=== PATIENT | male | born 1940 | race Caucasian/White ===

== ENCOUNTER 2018-01-09 03:04 | Observation (INO) | payer OTHER, SELFPAY ==
[~2018-01-09] VITALS: Ht 170.2 cm; Wt 59.0 kg
[~2018-01-09 03:04] MED LIST: ALBU3IS INH; ALBU90OI INH; AMLO5 PO; ASPI81CH PO; BUDE6HFA INH; FAMO20 PO; FERR325 PO; FLUSAL1005 INH; FLUSAL5005 INH; GUAI600T33 PO; LEVO750 PO; METO25 PO; MUCOMYST; Norco 5-325 Ta1 EACH PO; OXYGEN; PRAV20 PO; PRED1 PO; PRED10 PO; PRED20 PO; Pulmicort Fle180 MCG INH; ROFL500T PO; TIOT18 INH; TRAM50 PO
[2018-01-09] MEDS ORDERED: PRED10 PO (03:49)
[2018-01-09] MEDS ORDERED: ALBU2.5V5 NEB (03:51)
[2018-01-09] MEDS ORDERED: CLOP75 PO (03:53)
[2018-01-09] MEDS ORDERED: AMLO10 PO (03:54)
[2018-01-09 04:15] LABS: BASOPHILS ABSOLUTE AUTO 0.05 K/mm3 (0.00-0.23); BASOPHILS PERCENT AUTO 0 % (0-2); EOSINOPHILS ABSOLUTE AUTO 0.13 K/mm3 (0.00-0.68); EOSINOPHILS PERCENT AUTO 1 % (0-6); Hematocrit 29.8 % (37.0-53.0); Hemoglobin 9.2 g/dL (13.5-17.5); IMMATURE GRAN PERCENT AUTO 1 % (0-1); LYMPHOCYTES PERCENT AUTO 7 % (21-46); MONOCYTES ABSOLUTE AUTO 1.06 K/mm3 (0.16-1.47); MONOCYTES PERCENT AUTO 7 % (4-13); Mean Corpuscular HGB 25.6 pg (26.0-34.0); Mean Corpuscular HGB Conc 30.9 g/dL (31.5-36.5); Mean Corpuscular Volume 83 fL (80-100); Mean Platelet Volume 10.6 fL (9.1-12.4); NEUTROPHILS ABSOLUTE AUTO 12.39 K/mm3 (1.96-9.15); NEUTROPHILS PERCENT AUTO 84 % (41-73); Platelet Count 252 K/mm3 (150-400); RDW Coefficient Variation 14.2 % (11.7-14.2); RDW Standard Deviation 43.1 fL (35.1-46.3); Red Blood Cell Count 3.59 M/mm3 (4.30-5.90); White Blood Cell Count 14.83 K/mm3 (4.00-11.30)
[2018-01-09 04:33] LABS: Alanine Aminotransfer (ALT/SGP 12 U/L (12-78); Albumin, Blood 3.5 g/dL (3.4-5.0); Albumin/Globulin Ratio 1.1 (0.8-1.8); Alk Phos 37 U/L (50-136); Anion Gap 7 mmol/L (6-16); Aspartate Aminotrans (AST/SGOT 13 U/L (12-37); Bilirubin, Total 0.4 mg/dL (0.1-1.0); Blood Urea Nitrogen 19 mg/dL (8-24); Bun/Creatinine Ratio 19.6 (12.0-20.0); CO2, Blood 28 mmol/L (21-32); Calcium, Blood 8.2 mg/dL (8.5-10.1); Chloride, Blood 106 mmol/L (98-108); Creatinine, Blood 0.97 mg/dL (0.60-1.20); Globulin, Blood 3.1 g/dL (2.2-4.0); Glomerular Filtration Rate >60 (60-); Glucose, Blood 94 mg/dL (70-99); Sodium, Blood 141 mmol/L (136-145); Total Protein, Blood 6.6 g/dL (6.4-8.2)
[2018-01-09 05:09] LABS: Magnesium, Blood 2.3 mg/dL (1.6-2.4)
[2018-01-09 06:28] LABS: Source, Urine Clean Catch
[2018-01-09 06:35] LABS: Bilirubin, Urine Neg (Neg); Blood, Urine Neg (Neg); Glucose Qualitative, Urine Neg (Neg); Ketones, Urine Neg (Neg); Leukocyte Esterase, Urine Neg (Neg); Nitrite, Urine Neg (Neg); Protein, Urine Neg (Neg); Specific Gravity, Urine 1.015 (1.003-1.022); Urobilinogen, Urine NORM (Normal)
[2018-01-09 06:43] LABS: Appearance, Urine Clear (Clear); Color, Urine Yellow (P-Yellow)
[2018-01-09 09:06] LABS: International Normalized Ratio 0.97
[2018-01-10 05:26] LABS: BASOPHILS ABSOLUTE AUTO 0.02 K/mm3 (0.00-0.23); BASOPHILS PERCENT AUTO 0 % (0-2); EOSINOPHILS PERCENT AUTO 0 % (0-6); Hematocrit 26.1 % (37.0-53.0); Hemoglobin 8.1 g/dL (13.5-17.5); IMMATURE GRAN ABSOLUTE AUTO 0.12 K/mm3 (0.00-0.10); IMMATURE GRAN PERCENT AUTO 1 % (0-1); LYMPHOCYTES ABSOLUTE AUTO 0.31 K/mm3 (0.84-5.20); LYMPHOCYTES PERCENT AUTO 2 % (21-46); MONOCYTES ABSOLUTE AUTO 0.41 K/mm3 (0.16-1.47); MONOCYTES PERCENT AUTO 2 % (4-13); Mean Corpuscular HGB 25.7 pg (26.0-34.0); Mean Corpuscular Volume 83 fL (80-100); Mean Platelet Volume 10.4 fL (9.1-12.4); NEUTROPHILS ABSOLUTE AUTO 18.62 K/mm3 (1.96-9.15); NEUTROPHILS PERCENT AUTO 96 % (41-73); Platelet Count 212 K/mm3 (150-400); RDW Coefficient Variation 14.3 % (11.7-14.2); RDW Standard Deviation 43.4 fL (35.1-46.3); Red Blood Cell Count 3.15 M/mm3 (4.30-5.90); White Blood Cell Count 19.48 K/mm3 (4.00-11.30)
[2018-01-10 05:52] LABS: Alanine Aminotransfer (ALT/SGP 10 U/L (12-78); Albumin, Blood 2.7 g/dL (3.4-5.0); Albumin/Globulin Ratio 0.8 (0.8-1.8); Alk Phos 31 U/L (50-136); Anion Gap 8 mmol/L (6-16); Aspartate Aminotrans (AST/SGOT 16 U/L (12-37); Bilirubin, Total 0.4 mg/dL (0.1-1.0); Blood Urea Nitrogen 22 mg/dL (8-24); Bun/Creatinine Ratio 24.6 (12.0-20.0); CO2, Blood 24 mmol/L (21-32); Calcium, Blood 7.8 mg/dL (8.5-10.1); Chloride, Blood 108 mmol/L (98-108); Creatinine, Blood 0.89 mg/dL (0.60-1.20); Globulin, Blood 3.2 g/dL (2.2-4.0); Glomerular Filtration Rate >60 (60-); Glucose, Blood 130 mg/dL (70-99); Magnesium, Blood 2.2 mg/dL (1.6-2.4); Potassium, Blood 4.1 mmol/L (3.5-5.5); Sodium, Blood 140 mmol/L (136-145); Total Protein, Blood 5.9 g/dL (6.4-8.2)
[2018-01-10] MEDS ORDERED: CLOP75 PO (13:46)
[2018-01-10] MEDS ORDERED: HYDR1TAB94 PO (13:47)
[2018-01-10] MEDS ORDERED: LEVO750 PO (13:48)
== END 2018-01-10 14:03 | disposition home or self-care (01) ==
LOC: ER 03:04 → SURS 03:05
PROVIDERS: Emergency Medicine; Internal Medicine; Surgery
PROC: 0DTJ4ZZ Resection of Appendix, Percutaneous Endoscopic Approach (ICD-10-PCS; principal; 2018-01-09 10:30)
DX: K35.2 Acute appendicitis with generalized peritonitis (principal); I10 Essential (primary) hypertension; J44.9 Chronic obstructive pulmonary disease, unspecified; I25.10 Atherosclerotic heart disease of native coronary artery without angina pectoris; Z86.73 Personal history of transient ischemic attack (TIA), and cerebral infarction without residual deficits; Z95.2 Presence of prosthetic heart valve; Z79.02 Long term (current) use of antithrombotics/antiplatelets; Z79.899 Other long term (current) drug therapy; Z79.82 Long term (current) use of aspirin; Z79.52 Long term (current) use of systemic steroids; Z88.0 Allergy status to penicillin; Z88.8 Allergy status to other drugs, medicaments and biological substances
CPT/HCPCS: 36415; 74176; 80053; 81003; 83605; 83690; 83735; 85025; 85027; 85610; 85730; 86850; 86900; 86901; 88304; 93005; 93010; 94640; 94760; 96361; 96365; 96366; 96372; 96375; 96376; 99285-25; G0378; J1100; J1650; J1885; J1956; J2250; J2370; J2405; J2710; J2930; J3010; J7030; J7120

== ENCOUNTER 2018-10-06 10:51 | Emergency (ER) | payer OTHER ==
[~2018-10-06] VITALS: Ht 170.2 cm; Wt 58.1 kg
[~2018-10-06 10:51] MED LIST changes: +ALBU2.5V5 NEB; +AMLO10 PO; +CLOP75 PO; +HYDR1TAB94 PO
[2018-10-06 11:32] LABS: BASOPHILS ABSOLUTE AUTO 0.06 K/mm3 (0.00-0.23); BASOPHILS PERCENT AUTO 1 % (0-2); EOSINOPHILS ABSOLUTE AUTO 0.05 K/mm3 (0.00-0.68); EOSINOPHILS PERCENT AUTO 0 % (0-6); Hematocrit 31.7 % (37.0-53.0); Hemoglobin 8.1 g/dL (13.5-17.5); IMMATURE GRAN ABSOLUTE AUTO 0.13 K/mm3 (0.00-0.10); IMMATURE GRAN PERCENT AUTO 1 % (0-1); LYMPHOCYTES ABSOLUTE AUTO 0.38 K/mm3 (0.84-5.20); LYMPHOCYTES PERCENT AUTO 3 % (21-46); MONOCYTES ABSOLUTE AUTO 1.06 K/mm3 (0.16-1.47); MONOCYTES PERCENT AUTO 9 % (4-13); Mean Corpuscular HGB 19.9 pg (26.0-34.0); Mean Corpuscular HGB Conc 25.6 g/dL (31.5-36.5); Mean Corpuscular Volume 78 fL (80-100); Mean Platelet Volume 9.9 fL (9.1-12.4); NEUTROPHILS ABSOLUTE AUTO 9.89 K/mm3 (1.96-9.15); NEUTROPHILS PERCENT AUTO 86 % (41-73); Platelet Count 298 K/mm3 (150-400); RDW Coefficient Variation 17.9 % (11.7-14.2); RDW Standard Deviation 50.4 fL (35.1-46.3); Red Blood Cell Count 4.07 M/mm3 (4.30-5.90); White Blood Cell Count 11.57 K/mm3 (4.00-11.30)
[2018-10-06 11:58] LABS: Alanine Aminotransfer (ALT/SGP 17 U/L (12-78); Albumin, Blood 3.7 g/dL (3.4-5.0); Albumin/Globulin Ratio 1.1 (0.8-1.8); Alk Phos 61 U/L (50-136); Anion Gap 8 mmol/L (6-16); Aspartate Aminotrans (AST/SGOT 14 U/L (12-37); Bilirubin, Total 0.3 mg/dL (0.1-1.0); Blood Urea Nitrogen 16 mg/dL (8-24); Bun/Creatinine Ratio 17.1 (12.0-20.0); CO2, Blood 27 mmol/L (21-32); Calcium, Blood 8.7 mg/dL (8.5-10.1); Chloride, Blood 102 mmol/L (98-108); Creatinine, Blood 0.93 mg/dL (0.60-1.20); Globulin, Blood 3.5 g/dL (2.2-4.0); Glomerular Filtration Rate >60 (60-); Glucose, Blood 94 mg/dL (70-99); Potassium, Blood 3.6 mmol/L (3.5-5.5); Sodium, Blood 137 mmol/L (136-145); Total Protein, Blood 7.2 g/dL (6.4-8.2); Troponin I <0.015 ng/mL (0.000-0.040)
[2018-10-06] MEDS ORDERED: PRED20 PO (14:57)
[2018-10-06] MEDS ORDERED: SPIRIVA RESPIMAT INH (16:56)
[2018-10-06] MEDS ORDERED: METO25 PO (16:58)
[2018-10-06] MEDS ORDERED: BUDE6HFA PO (16:59)
[2018-10-06] MEDS ORDERED: FERROUS SULFATE PO (17:00)
[2018-10-06] MEDS ORDERED: DALIRESP500 MCG PO (17:02)
[2018-10-06] MEDS ORDERED: Percocet 5-3251 EACH PO (18:05)
[2018-10-06] MEDS ORDERED: Zovirax800 MG PO (18:05)
[2018-10-06 18:15] LABS: Percent Saturation 3.6 % (20.0-50.0)
== END 2018-10-06 18:45 | disposition home or self-care (01) ==
LOC: ER 10:51
PROVIDERS: Emergency Medicine; Nurse Practitioner Acute Care
DX: J44.1 Chronic obstructive pulmonary disease with (acute) exacerbation (principal); B02.9 Zoster without complications; D64.9 Anemia, unspecified; Z88.0 Allergy status to penicillin; Z79.899 Other long term (current) drug therapy; Z87.891 Personal history of nicotine dependence
CPT/HCPCS: 36415; 71046; 80053; 82728; 83540; 83550; 84484; 85025; 93005; 93010; 94644; J2405; J2930; J3010

== ENCOUNTER 2018-10-09 12:26 | Inpatient (IN) | payer OTHER ==
[~2018-10-09] VITALS: Ht 170.2 cm; Wt 57.5 kg
[~2018-10-09 12:26] MED LIST changes: -AMLO10 PO; +BUDE6HFA PO; +DALIRESP500 MCG PO; +Ferrous Sulfat325 M2 PO; +Percocet 5-3251 EACH PO; +SPIRIVA RESPIMAT INH; +Zovirax800 MG PO
[2018-10-09 13:33] LABS: BASOPHILS ABSOLUTE AUTO 0.06 K/mm3 (0.00-0.23); BASOPHILS PERCENT AUTO 0 % (0-2); EOSINOPHILS ABSOLUTE AUTO 0.02 K/mm3 (0.00-0.68); EOSINOPHILS PERCENT AUTO 0 % (0-6); Hematocrit 27.8 % (37.0-53.0); Hemoglobin 7.7 g/dL (13.5-17.5); IMMATURE GRAN ABSOLUTE AUTO 0.34 K/mm3 (0.00-0.10); IMMATURE GRAN PERCENT AUTO 1 % (0-1); LYMPHOCYTES ABSOLUTE AUTO 0.85 K/mm3 (0.84-5.20); LYMPHOCYTES PERCENT AUTO 3 % (21-46); MONOCYTES ABSOLUTE AUTO 2.01 K/mm3 (0.16-1.47); MONOCYTES PERCENT AUTO 8 % (4-13); Mean Corpuscular HGB Conc 27.7 g/dL (31.5-36.5); Mean Platelet Volume 9.5 fL (9.1-12.4); NEUTROPHILS ABSOLUTE AUTO 21.87 K/mm3 (1.96-9.15); NEUTROPHILS PERCENT AUTO 87 % (41-73); Platelet Count 317 K/mm3 (150-400); RDW Coefficient Variation 17.9 % (11.7-14.2); RDW Standard Deviation 46.2 fL (35.1-46.3); Red Blood Cell Count 3.85 M/mm3 (4.30-5.90); White Blood Cell Count 25.15 K/mm3 (4.00-11.30)
[2018-10-09 13:54] LABS: Alanine Aminotransfer (ALT/SGP 17 U/L (12-78); Albumin, Blood 3.6 g/dL (3.4-5.0); Alk Phos 59 U/L (50-136); Anion Gap 6 mmol/L (6-16); Aspartate Aminotrans (AST/SGOT 15 U/L (12-37); Bilirubin, Total 0.4 mg/dL (0.1-1.0); Blood Urea Nitrogen 19 mg/dL (8-24); Bun/Creatinine Ratio 16.1 (12.0-20.0); CO2, Blood 29 mmol/L (21-32); Calcium, Blood 8.7 mg/dL (8.5-10.1); Chloride, Blood 100 mmol/L (98-108); Creatinine, Blood 1.18 mg/dL (0.60-1.20); Globulin, Blood 3.6 g/dL (2.2-4.0); Glomerular Filtration Rate >60 (60-); Glucose, Blood 94 mg/dL (70-99); Potassium, Blood 3.6 mmol/L (3.5-5.5); Sodium, Blood 135 mmol/L (136-145); Total Protein, Blood 7.2 g/dL (6.4-8.2)
[2018-10-09 14:14] LABS: Mean Corpuscular Volume 72 fL (80-100)
[2018-10-09 15:31] LABS: Source, Urine Clean Catch
[2018-10-09 15:38] LABS: Bilirubin, Urine Neg (Neg); Blood, Urine Neg (Neg); Glucose Qualitative, Urine Neg (Neg); Ketones, Urine 2+ (Neg); Leukocyte Esterase, Urine Neg (Neg); Nitrite, Urine Neg (Neg); Protein, Urine Neg (Neg); Specific Gravity, Urine 1.005 (1.003-1.022); Urobilinogen, Urine NORM (Normal)
[2018-10-09 15:58] LABS: Appearance, Urine Clear (Clear); Color, Urine Yellow (P-Yellow)
--- NOTE | 2018-10-09 18:16 | NUR ---
PT ADMITTED FROM ED 1630 VIA STRETCHER, STOOD AND STEPPED INTO BED SBA, UNABLE TO LIFT OWN LEGS RELATED TO WEAKNESS. ASSISTED PT INTO BED. ORIENTED TO ROOM SETUP AND SAFETY. HOOKED UP TO TELE- RATE 116-122 UNABLE TO DETERMINE RHYTHM BUT THOUGHT LIKELY A FIB. SET UP IF FLUIDS AND GOT PT WATER AND STEPH MIST. ABLE TO SIP FLUIDS, FEELS NAUSEA EASY WITH PO INTAKE. STATES LAST BM 4 DAYS AGO. WILL START LAX PROTOCOL. COMPLETED HX AND ASSESSMENT. HAS LLL MOISTURE AND UPPER LOBE EXP WHEEZE. CALLED DORY RT 1615 TO EVAL PT AND SET UP NEBS.
--- NOTE | 2018-10-09 18:32 | NUR ---
Pt visit this evening. Pt is A&Ox4 and reports 7/10 pain in his right shoulder. He reports 6/7 dyspnea. Pt reports that he typically wears oxygen at home but due to inability to pay oxygen was picked up. Pt requests for this RN to come back tomorrow when his is here. He reports his dyspnea is increasing as he speaks. This RN honored Pt's wishes. Spoke with Pt's nurse Ryley and she reports that she has asked RT to come evaluate to help manage dyspnea. Plan is to establish initial visit and assessment for needs when is here. Pt reports will be visiting around noon tomorrow.
[2018-10-10 04:51] LABS: BASOPHILS ABSOLUTE AUTO 0.03 K/mm3 (0.00-0.23); BASOPHILS PERCENT AUTO 0 % (0-2); EOSINOPHILS ABSOLUTE AUTO 0.09 K/mm3 (0.00-0.68); EOSINOPHILS PERCENT AUTO 1 % (0-6); Hematocrit 22.1 % (37.0-53.0); Hemoglobin 6.1 g/dL (13.5-17.5); IMMATURE GRAN ABSOLUTE AUTO 0.18 K/mm3 (0.00-0.10); IMMATURE GRAN PERCENT AUTO 1 % (0-1); LYMPHOCYTES ABSOLUTE AUTO 1.29 K/mm3 (0.84-5.20); LYMPHOCYTES PERCENT AUTO 8 % (21-46); MONOCYTES ABSOLUTE AUTO 1.23 K/mm3 (0.16-1.47); MONOCYTES PERCENT AUTO 8 % (4-13); Mean Corpuscular HGB 19.8 pg (26.0-34.0); Mean Corpuscular HGB Conc 27.6 g/dL (31.5-36.5); Mean Corpuscular Volume 72 fL (80-100); Mean Platelet Volume 10.3 fL (9.1-12.4); NEUTROPHILS ABSOLUTE AUTO 12.82 K/mm3 (1.96-9.15); NEUTROPHILS PERCENT AUTO 82 % (41-73); Platelet Count 256 K/mm3 (150-400); RDW Coefficient Variation 17.9 % (11.7-14.2); RDW Standard Deviation 46.1 fL (35.1-46.3); Red Blood Cell Count 3.08 M/mm3 (4.30-5.90); White Blood Cell Count 15.64 K/mm3 (4.00-11.30)
[2018-10-10 05:03] LABS: Anion Gap 6 mmol/L (6-16); Blood Urea Nitrogen 15 mg/dL (8-24); CO2, Blood 27 mmol/L (21-32); Calcium, Blood 7.9 mg/dL (8.5-10.1); Chloride, Blood 106 mmol/L (98-108); Glomerular Filtration Rate >60 (60-); Glucose, Blood 82 mg/dL (70-99); Potassium, Blood 3.9 mmol/L (3.5-5.5); Sodium, Blood 139 mmol/L (136-145)
--- NOTE | 2018-10-10 05:51 | NUR ---
78 Y/O MALE RESTED COMFORTABLY ALL EVENING. PTS LUNGS WHEEZING WITH RESPIRATORY TREATMENTS PROVIDED VIA RT. PT ALERT AND ORIENTED X3, DENIES PAIN OR NAUSEA. PT HAPPY AND COOPERATIVE. PT BED LOW POSITION, CALL LIGHT AT SIDE.
--- NOTE | 2018-10-10 10:01 | NUR ---
PATIENT TRANSFERED TO ICU 12 AFTER STAFF SONOGRAPHER 303 FOR DFFICULTY BREATHING.
--- NOTE | 2018-10-10 10:16 | NUR ---
CALLED DR. HO AND REC'D ORDERS FOR 1V CXR INSTEAD OF 2V
--- NOTE | 2018-10-10 10:28 | NUR ---
Responded to a rapid response to Vishal's room this morning. Dr. Bhakta states she thinks that he may have aspirated. His breathing is rapid and shallow with a cough noted when this verse writer initially arrived. ELECTRICIAN SUBSTATION SUPERVISOR staff tending to pt. Dr. Bhakta asked Vishal what he would like as far as resusitation and treatment. He is agreeable to treatments and a breathing tube "As long as I'm not a vegetable." Pt was transferred to ICU 12. Vishal's breathing improved enough that he was able to call his . ICU nurse, Trenton, who responded to the ELECTRICIAN SUBSTATION SUPERVISOR spoke with pt's on the phone. PC RN assisted with transferring pt to the ICU. ICU nurse will call PC RN when pt's arrives. PC plan from yesterday was to have a conversation with pt and re: code status when she came in to visit with pt today. PC to follow with AD/POLST and advanced care planning discussion when arrives.
--- NOTE | 2018-10-10 11:53 | NUR ---
MD VISIT DR. REYES IN
--- NOTE | 2018-10-10 11:54 | NUR ---
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 HAS SEEN DR. CASTILLO
--- NOTE | 2018-10-10 12:20 | NUR ---
ERNESTO GONSALEZ SUPERINTENDENT METERS IN. ASSISTED PATIENT AND HIS TO FILL OUT ADVANCE DIRECTIVES
--- NOTE | 2018-10-10 13:18 | NUR ---
CALLED DR. HO RE ORDER FOR STOOL. PT WILL BE POSITIVE FOR BLOOD D/T HEMORRHOID. CANCELLED.
--- NOTE | 2018-10-10 16:51 | NUR ---
FIRST UNIT OF BLOOD COMPLETE. STARTED PIV LFA WITH LIDOCAINE
--- NOTE | 2018-10-10 17:33 | NUR ---
MD VISIT DR. CHAMBERLAIN IN. NO ORDERS
[2018-10-10 17:58] LABS: Hematocrit 29.5 % (37.0-53.0); Hemoglobin 8.7 g/dL (13.5-17.5)
--- NOTE | 2018-10-10 18:07 | NUR ---
CALLED DR. HO AFTER H/H RETURNED. WILL HOLD ON 2ND UNIT OF PRBC IT IS 8.7/29.5
--- NOTE | 2018-10-10 18:42 | NUR ---
I met with vikki and his spouse, Fawn at bedside. Vishal had trouble talking, as it would lead to fits of coughing. Fawn did most of the talking. She tells me that when they got 12 years ago, "Vishal was told he had two years to live." Because of this, she has trouble believing that he is nearing end-of-life. They have just moved into a new home. Both atribute the stress of this move to causing the exaserbation of Vishal's health problems. They very much depend on each other. Fawn admits, she is "terified" of losing him. I brought up the subject of an Advanced Directive. I explained the benefit of having this document as a supportive tool for family--they will know exactly what Vishal wants instead of having to figure out what he means when he says "I don't want to be a vegetable." We completed an Advanced Directive for Vishal. Signed by witnesses and copied. I hand-carried a copy to medical records and gave several to Fawn to distribute to adult children. Fawn and Vishal's dtr, Berna will be co-MPOA. I provided Vishal and Fawn the assurance of God's love and atention. this appeared to calm Fawn in particular. I will remain available.
--- NOTE | 2018-10-10 19:20 | NUR ---
ASSUMED CARE PT SITTING UP IN BED, AWAKE AND ALERT, DENIES SOB AND WITH PROMPTING, REPORTS PAIN TO LEFT EAR D/T SINGLES. SITE IS DRY AND HAS SCABS PRESENT BUT PT DECLINES PAIN MEDICATIONS. HR NOTED TO BE IN THE 130'S AND PER AM RN WAS NEW. PLAN TO ADMINISTER IV LOPRESSOR SINCE PT IS NPO AND CANNOT TAKE HOME RX'S UNTIL CLEARED BY ST. PT VOIDING IN URINAL WITHOUT ASSISTANCE.
--- NOTE | 2018-10-11 06:16 | NUR ---
SHIFT SUMMARY NO ACUTE EVENTS OVERNIGHT. PT WAS ABLE TO SLEEP FOR MAJORITY OF SHIFT. PT DOES NOT USE CALL LIGHT FREQUENTLY AND HAS STATED THAT "I DON'T WANT TO BE A BURDEN TO ANYONE." ENCOURAGED TO CALL FOR ANY NEEDS OR CONCERNS AND ASSURED PT THAT HE WAS NOT A BURDEN. PT BECOMES VERY SOB WITH MINIMAL MOVEMENT W/ RR IN THE 30'S AND PURSED LIP BREATHING BUT RECOVERS QUICKLY AND HAS NOT REQUIRED O2/MAINTAINED O2 SATS >90% FOR SHIFT. SINUS TACH NOTED AT START OF SHIFT HAS NOT RETURN POST IV LOPRESSOR ADMINISTRATION AND HAS RANGED 80-100. LR AT 75ML/HR, PT REMAIN NPO PENDING ST EVAL.
--- NOTE | 2018-10-11 07:37 | NUR ---
ASSUMED CARE PT. ALERT AND ORIENTED THIS AM. RESTING COMFORTABLY IN BED. CURRENTLY ON RA, RR EVEN AND UNLABORED. PT. REPORTS PAIN LEVEL OF 2/10 THIS AM TO RIGHT EAR R/T SHINGLES. PT. REPORTS THIS IS THE BEST CONTROLLED HIS PAIN HAS BEEN. PT. ANTHONY IN BED. NADN. URINAL AT BEDSIDE CALL LIGHT IN REACH. BED IN LOW POSITION.
--- NOTE | 2018-10-11 08:02 | NUR ---
SPEECH THERAPY IN TO WORK WITH PT.
[2018-10-11 10:27] LABS: BASOPHILS ABSOLUTE AUTO 0.02 K/mm3 (0.00-0.23); BASOPHILS PERCENT AUTO 0 % (0-2); EOSINOPHILS PERCENT AUTO 0 % (0-6); Hematocrit 27.7 % (37.0-53.0); Hemoglobin 8.2 g/dL (13.5-17.5); IMMATURE GRAN PERCENT AUTO 1 % (0-1); LYMPHOCYTES ABSOLUTE AUTO 0.34 K/mm3 (0.84-5.20); LYMPHOCYTES PERCENT AUTO 2 % (21-46); MONOCYTES ABSOLUTE AUTO 0.62 K/mm3 (0.16-1.47); MONOCYTES PERCENT AUTO 3 % (4-13); Mean Corpuscular HGB 21.1 pg (26.0-34.0); Mean Corpuscular HGB Conc 29.6 g/dL (31.5-36.5); Mean Corpuscular Volume 71 fL (80-100); Mean Platelet Volume 10.1 fL (9.1-12.4); NEUTROPHILS ABSOLUTE AUTO 18.32 K/mm3 (1.96-9.15); NEUTROPHILS PERCENT AUTO 94 % (41-73); Platelet Count 316 K/mm3 (150-400); RDW Coefficient Variation 18.7 % (11.7-14.2); RDW Standard Deviation 47.1 fL (35.1-46.3); Red Blood Cell Count 3.89 M/mm3 (4.30-5.90)
[2018-10-11 10:41] LABS: Albumin, Blood 2.6 g/dL (3.4-5.0); Anion Gap 8 mmol/L (6-16); Blood Urea Nitrogen 19 mg/dL (8-24); Bun/Creatinine Ratio 21.6 (12.0-20.0); CO2, Blood 26 mmol/L (21-32); Calcium, Blood 8.6 mg/dL (8.5-10.1); Chloride, Blood 103 mmol/L (98-108); Creatinine, Blood 0.88 mg/dL (0.60-1.20); Glomerular Filtration Rate >60 (60-); Glucose, Blood 183 mg/dL (70-99); Phosphorus, Blood 2.2 mg/dL (2.5-4.9); Potassium, Blood 3.4 mmol/L (3.5-5.5); Sodium, Blood 137 mmol/L (136-145)
--- NOTE | 2018-10-11 12:22 | NUR ---
UPDATE PT. SOB WITH EXERTION; ASSISTED UP TO BED SIDE TOILET WITH ONE PERSON ASSIST. PT TAKES APPROX 5 MIN TO RECOVER. SPO2 MAINTAINS >95% ON RA. PT. AT BEDSIDE. PT. ABLE TO FEED SELF WITH OUT DIFFICULTY.CALL LIGHT IN REACH.
--- NOTE | 2018-10-11 14:30 | NUR ---
SPIRITUAL CARE AT BEDSIDE. PT. TEARFUL IN CONVERSATION. WILL MED WHEN PT IS DONE PRAYING AND HAVING PRIVATE CONVERSATION.
--- NOTE | 2018-10-11 15:58 | NUR ---
REPORT TO AGATA MOORE. PT AND ALL BELONGINGS TO BE TAKEN TO U 13. PT NOTIFIED.
--- NOTE | 2018-10-11 16:30 | NUR ---
Lengthy visit with Vishal and his this afternoon. He was tearful throughout. He spoke about his accomplishments and how much he misses being able to build and create things like he used to. He listed many things he hopes he will be able to fix around his new home when he gets his strength back. He expressed deep frustration at "the system" that has let him down. He feels victimized that after years of hard work, he is now left in abject poverty. He spoke at length about his love for Fawn and his gratitude for her love. I provided gentle staff genetic counselor regarding his deeply-seated dissapointment with his quality of life, and his dreams of being able to complete a few "last wishes." He held my hand tightly throughout conversation and appeared to benefit from emotional and spiritual support. We prayed together for his family at his request. I will remain available.
--- NOTE | 2018-10-11 18:26 | NUR ---
SHIFT SUMMARY 1615 PT RECEIVED FROM ICU VIA BED. ALERT AND ORIENTED X3. DENIES PAIN THIS AFTERNOON. LUNG SOUNDS COARSE WITH EXPIRATORY WHEEZES THROUGHOUT, DYSPNEA ON EXERTION. MOIST COUGH, PT HAD SMALL AMOUNT OF EMESIS AFTER COUGHING. ON ARRIVAL, IV FOUND TO BE INFILTRATED, NEW IV STARTED TO LEFT FOREARM. PT TEARFUL THIS AFTERNOON WHEN TALKING ABOUT HIS AND HIS ILLNESS. REASSURED PT AND LISTENED THERAPEUTICALLY. PT DENIES NEEDS. WILL CONTINUE TO MONITOR.
--- NOTE | 2018-10-12 00:39 | NUR ---
ASSUMED CARE OF PATIENT AT APPROXIMATELY 1900 FROM AGATA Bartlett RN. PATIENT ALERT AND ORIENTED X4; PATIENT HAS NOT AMBULATED SINCE SHIFT CHANGE; USES URINAL IN BED. PATIENT DENIES PAIN, DIZZINESS AND NAUSEA. PATIENT REPORTS NUMBNESS AND TINGLING IN FEET FOR "TWO MONTHS". PATIENT IS VERY DYSPNEIC AT REST AT TIMES; PATIENT HAS COUGHING EPISODES WHERE PATIENT'S HEART RATE INCREASES UP TO 150 BUT LOWERS TO 100 TO HIGH 120'S WITHIN A FEW MINUTES; PATIENT REPORTS FEELING LIKE HE CANNOT BREATH; PATIENT REPORTS BEDSIDE FAN BLOWING IN FACE HELPS. SR/ST W/PACS ON TELE; OXYGEN SATURATION ABOVE 90% ON ROOM AIR. PATIENT HAS BLOOD TINGED SPUTUM WITH MODERATE AMOUNTS PRODUCED; L/S EXP WHEEZES TO COARSE. PIV TKO. PATIENT CURRENTLY RESTING IN BED; CALL LIGHT IN REACH; BED IN LOWEST POSISTION; BED ALARM ON; WILL CONTINUE TO MONITOR AND ASSESS UNTIL END OF SHIFT.
[2018-10-12 04:02] LABS: BASOPHILS ABSOLUTE AUTO 0.02 K/mm3 (0.00-0.23); BASOPHILS PERCENT AUTO 0 % (0-2); EOSINOPHILS PERCENT AUTO 0 % (0-6); Hematocrit 25.9 % (37.0-53.0); Hemoglobin 7.6 g/dL (13.5-17.5); IMMATURE GRAN ABSOLUTE AUTO 0.19 K/mm3 (0.00-0.10); IMMATURE GRAN PERCENT AUTO 1 % (0-1); LYMPHOCYTES ABSOLUTE AUTO 0.34 K/mm3 (0.84-5.20); LYMPHOCYTES PERCENT AUTO 2 % (21-46); MONOCYTES ABSOLUTE AUTO 0.69 K/mm3 (0.16-1.47); MONOCYTES PERCENT AUTO 3 % (4-13); Mean Corpuscular HGB 21.3 pg (26.0-34.0); Mean Corpuscular HGB Conc 29.3 g/dL (31.5-36.5); Mean Corpuscular Volume 73 fL (80-100); Mean Platelet Volume 10.2 fL (9.1-12.4); NEUTROPHILS ABSOLUTE AUTO 20.98 K/mm3 (1.96-9.15); NEUTROPHILS PERCENT AUTO 94 % (41-73); Platelet Count 324 K/mm3 (150-400); RDW Coefficient Variation 18.9 % (11.7-14.2); RDW Standard Deviation 48.4 fL (35.1-46.3); Red Blood Cell Count 3.57 M/mm3 (4.30-5.90); White Blood Cell Count 22.22 K/mm3 (4.00-11.30)
[2018-10-12 04:20] LABS: Albumin, Blood 2.4 g/dL (3.4-5.0); Anion Gap 10 mmol/L (6-16); Blood Urea Nitrogen 29 mg/dL (8-24); Bun/Creatinine Ratio 30.3 (12.0-20.0); CO2, Blood 24 mmol/L (21-32); Calcium, Blood 8.1 mg/dL (8.5-10.1); Chloride, Blood 108 mmol/L (98-108); Creatinine, Blood 0.96 mg/dL (0.60-1.20); Glomerular Filtration Rate >60 (60-); Glucose, Blood 156 mg/dL (70-99); Phosphorus, Blood 2.9 mg/dL (2.5-4.9); Potassium, Blood 3.4 mmol/L (3.5-5.5); Sodium, Blood 142 mmol/L (136-145)
--- NOTE | 2018-10-12 06:56 | NUR ---
PRN BLOOD PRESSURE MEDICATION GIVEN; GOOD RESULTS. NO OTHER ACUTE CHANGES TO REPORT. WILL CONTINUE TO MONITOR AND ASSESS UNTIL END OF SHIFT.
--- NOTE | 2018-10-12 13:28 | NUR ---
SHIFT NOTE ASSUMED CARE OF PT AT APPROX 0700. AT THAT TIME, PT VSS AND APPEARED TO BE IN MILD RESPIRATORY DISTRESS TRIGGERED BY A COUGHING EPISODE. RT AND DR HO AT BEDSIDE. FURTHER SWALLOW EVAL ORDERED PER DR. HO, AND ST IN THIS AFTERNOON FOR FURTHER ASSESSMENT. ST ORDERS: NO STRAWS, ALL MEDS ONE BY ONE IN APPLE SAUCE, ALL MEDS TAKEN IN CHAIR, ALL LIQUIDS NECTAR THICK WITH SPOON AND PUREE DIET. IF PT SOB, NPO FOR PATIENT SAFETY PER ST. PT EXPRESSED EMOTIONAL DISTRESS/CONCERN TO THIS RN ABOUT CURRENT ILLNESS. PT TEARFUL EXPRESSING FEAR OF "NOT MAKING IT OUT OF THE HOSPITAL" PT STATES THAT IS HIS BEST MEANS OF SUPPORT. CURRENTLY AT BEDSIDE AND CALMS THE PT PRN. THIS RN PROVIDED THERAPEUTIC COMMUNICATION AND ACTIVE LISTENING TO PT REGARDING CONCERNS. PT CALMED BY THIS RN PRESNCE. ORDERS FOR BIPAP RECIEVED AND BIPAP IN ROOM READY TO BE TESTED WHEN RT ASSESSES APPROPRIATE. PT CURRENTLY CALM AND IN NO APPARENT SIGNS OF DISTRESS. PT ON RA, TELE SHOWS SR-ST. ST WITH COUGH UP TO 130'S. AFTER COUGHING EPISODE SUBSIDES, ST TURNS INTO NSR. SEE SHIFT ASSESSMENT FOR DETAILED ASSESSMENT. WILL CONTINUE TO MONITOR AND UPDATE APPROPRIATE
[2018-10-12 13:46] LABS: Hematocrit 27.6 % (37.0-53.0); Hemoglobin 8.4 g/dL (13.5-17.5)
--- NOTE | 2018-10-12 16:56 | NUR ---
SHIFT SUMMARY VSS THIS SHIFT. PT NAPPING THROUGHOUT SHIFT, STATES COMFORTABLE AND STATES "I WANT TO CATCH UP ON SLEEP". PT STABLE ON 1L NC, MAINTAINING OXYGEN SATS >90. PT TOLERATING BRIDGE FROM CARDIZEM TO METOPROLOL SUSTAINING HR IN 80'S THIS SHIFT. PT TOLERATING Q2 TURNS. NO ACUTE CHANGES, LASIX GIVEN AND 650 ML OUT THIS SHIFT. VEL POWERGLIDE PATENT. LAC PATENT. STILL AWAITING BED AVAILABILITY AT [facility]. WILL CONTINUE TO MONIOR AND UPDATE APPROPRIATE.
--- NOTE | 2018-10-12 17:12 | NUR ---
SHIFT SUMMARY NO ACUTE CHANGES THIS SHIFT. PT VSS AND TOLERATING BREATHING TX WELL. PT WITH FAMILY AND FRIENDS VISITING THIS AFTERNOON. FAMILY AND FRIENDS HELP TO CALM PT. PT VERY TEARFUL THIS SHIFT REGARDING CURRENT ILLNESS, PAST ILLNESSES, AND REMEMBERING FAMILY MEMBERS WHO HAVE . PT O2 SATURATIONS <90 ON RA AND WITH E/U BREATHING WHEN NOT COUGHING. WITH COUGH, PT NSR TURNS INTO ST AND PT BECOMES VERY ANXIOUS. CLEAR SPUTUM THROUGHOUT THIS SHIFT. LFA IV PATENT AND INFUSING TKO. PT VERY ESPINOSA. 1 PERSON ASSIST WITH TRANSFER. PT NEEDS TO SIT IN CHAIR AND EAT PUREE DIET ONLY IF NOT SOB. WILL CONTINUE TO MONITOR AND UPDATE APPROPRIATE.
--- NOTE | 2018-10-12 22:15 | NUR ---
ASSUMED CARE OF PATIENT AT APPROXIMATELY 1915 FROM ITZ Childers RN. PATIENT ALERT AND ORIENTED X4; TEARFUL AT TIMES DISCUSSING FAMILY; PLEASANT; APPEARS DEPRESSED AT TIMES; ANXIOUS ABOUT BEING DISCHARGED TOO SOON "LIKE LAST TIME". PATIENT HAS NOT AMBULATED SINCE SHIFT CHANGE; USES URINAL IN BED. PATIENT DENIES PAIN, DIZZINESS AND NAUSEA. PATIENT REPORTS NUMBNESS AND TINGLING IN FEET FOR "TWO MONTHS". PATIENT IS VERY DYSPNEIC AT REST AT TIMES; PATIENT'S COUGHING EPISODES HAVE DECREASED COMPARED TO LAST NIGHT; PATIENT'S HEART RATE TO 100 TO HIGH 120'S; TOUCHES 130'S FOR SECONDS; RECOVERS WITHIN A FEW MINUTES; PATIENT REPORTS BEDSIDE FAN BLOWING IN FACE HELPS. ST W/PACS ON TELE; OXYGEN SATURATION ABOVE 90% ON ROOM AIR. PATIENT COUGHS UP MODERATE AMOUNTS OF THICK CLEAR SPUTUM; THICKENED LIQUIDS; MEDS WHOLE IN APPLESAUCE; UP TO CHAIR FOR EATING; EXP WHEEZES TO COARSE. PIV TKO. PATIENT CURRENTLY RESTING IN BED; CALL LIGHT IN REACH; BED IN LOWEST POSISTION; BED ALARM ON; WILL CONTINUE TO MONITOR AND ASSESS UNTIL END OF SHIFT.
--- NOTE | 2018-10-12 23:05 | NUR ---
PATIENT CALLED STAFF TO ROOM TO REPORT EVERY TIME HE FALLS ALSEEP SOMETHING BEEPS; REFERRING TO PULSE OXIMETRY; DROPS TO 88-89 %; PATIENT PLACED ON BIPAP W/ 1LPM BLEED IN; OXYGEN SAT UP TO 95%; RESP RATE DECREASED AND HEART RATE IMPROVING AT TIMES. WILL CONTINUE TO MONITOR AND ASSESS UNTIL END OF SHIFT.
[2018-10-13 04:48] LABS: BASOPHILS ABSOLUTE AUTO 0.02 K/mm3 (0.00-0.23); BASOPHILS PERCENT AUTO 0 % (0-2); EOSINOPHILS PERCENT AUTO 0 % (0-6); Hematocrit 25.9 % (37.0-53.0); Hemoglobin 7.4 g/dL (13.5-17.5); IMMATURE GRAN ABSOLUTE AUTO 0.69 K/mm3 (0.00-0.10); IMMATURE GRAN PERCENT AUTO 4 % (0-1); LYMPHOCYTES ABSOLUTE AUTO 0.38 K/mm3 (0.84-5.20); LYMPHOCYTES PERCENT AUTO 2 % (21-46); MONOCYTES ABSOLUTE AUTO 0.65 K/mm3 (0.16-1.47); MONOCYTES PERCENT AUTO 4 % (4-13); Mean Corpuscular HGB Conc 28.6 g/dL (31.5-36.5); Mean Corpuscular Volume 73 fL (80-100); NEUTROPHILS PERCENT AUTO 91 % (41-73); Platelet Count 317 K/mm3 (150-400); RDW Coefficient Variation 19.9 % (11.7-14.2); RDW Standard Deviation 50.9 fL (35.1-46.3); Red Blood Cell Count 3.53 M/mm3 (4.30-5.90); White Blood Cell Count 18.34 K/mm3 (4.00-11.30)
[2018-10-13 05:10] LABS: Albumin, Blood 2.5 g/dL (3.4-5.0); Anion Gap 7 mmol/L (6-16); Blood Urea Nitrogen 32 mg/dL (8-24); Bun/Creatinine Ratio 37.4 (12.0-20.0); CO2, Blood 26 mmol/L (21-32); Calcium, Blood 8.1 mg/dL (8.5-10.1); Chloride, Blood 112 mmol/L (98-108); Creatinine, Blood 0.86 mg/dL (0.60-1.20); Glomerular Filtration Rate >60 (60-); Glucose, Blood 141 mg/dL (70-99); Phosphorus, Blood 2.7 mg/dL (2.5-4.9); Potassium, Blood 3.9 mmol/L (3.5-5.5); Sodium, Blood 145 mmol/L (136-145)
--- NOTE | 2018-10-13 09:07 | NUR ---
SHIFT NOTE ASSUMED CARE OF PT AT APPROX 0700, 10/13/18. PT VSS AND IN NO APPARENT SIGN OF DISTRESS. A&OX4. BREATHING E/U ON 1.5 L VIA NC. EXPIRATORY WHEEZES AUDIBLE. IV LFA PATENT AND INFUSING ABX. PT EXPERIENCES SOB WITH CONVERSATION, AMUBLATION, MOVEMENT. PT CALLS APPROPRIATELY, CALL LIGHT WITHIN REACH. PT W/O QUESTIONS OR COMPLAINTS AT THIS TIME. SEE SHIFT ASSESSMENT FOR DETAILED ASSESSMENT. WILL CONTINUE TO MONITOR.
--- NOTE | 2018-10-13 16:07 | NUR ---
SHIFT SUMMARY NO ACUTE CHANGES THIS SHIFT. PT VSS AND IN NO APPARENT SIGN OF DISTRESS. PT BREATHING E/U AT THIS TIME. PT IN ST WITH FREQUENT PAC WITH HR IN 120-[address] MONTENEGRO AWARE AND ORDERED NS 125ML/HR. PT WITH NEWLY PLACED MCKENNA POWERGLIDE. THIS POWERGLIDE DOES NOT DRAW BLOOD WELL BECAUSE IT IS PLACED ON A VALVE, THEREFORE DO NOT USE THIS POWERGLIDE FOR LAB DRAWS. PT MAINTAINING O2 SATS >90 ON RA.
--- NOTE | 2018-10-13 19:30 | NUR ---
ASSUMED CARE PT RESTING IN ROOM COMFORTABLY AT THIS TIME. PER DAY SHIFT PT HAD NO ACUTE CHANGES IN STATUS TODAY. SHINGLES NOTED TO R EAR, NO DRAINAGE. PT AFFECT PLEASENT AND COOPERATIVE. RESP EVEN UNLBAORED ON RA. PER DAY SHIFT PT HAS EPISODES OF ANXIETY AND USES O2 PRN AT 1L VIA NC. PT REPORTS HAS BEEN WORKING ON PURSED LIP BREATHING FOR ANXIETY WELL. DENIES CP. PT IS SBA TO RR. NS INFUSING IN PIV. DENIES OTHER NEEDS. CALL LIGHT IN REACH.
--- NOTE | 2018-10-14 05:47 | NUR ---
SHIFT SUMMARY PT SLEEPING IN ROOM COMFORTABLY AT THIS TIME. NO ACUTE CHANGES IN STATUS TROUGHOUT NIGHT. PT SLEPT WELL OFF AND ON. RESP EVEN UNLBOARED ON RA, W/ SATS >92%. PT DID NOT NEED PRN OXYGEN AT ALL THROUGHOUT NIGHT. DENIES ANY PAIN. DENIES ANY NEEDS THIS AM. CALL LIGHT IS IN REACH. WILL CONTINUE TO MONITOR UNTIL SHIFT CHANGE.
[2018-10-14 07:58] LABS: Hemoglobin 6.9 g/dL (13.5-17.5); Mean Corpuscular HGB 21.5 pg (26.0-34.0); Mean Corpuscular HGB Conc 28.8 g/dL (31.5-36.5); Mean Corpuscular Volume 75 fL (80-100); Mean Platelet Volume 10.2 fL (9.1-12.4); NRBC ABSOLUTE 0.08 K/mm3 (0.00-0.02); NRBC Auto 0.5 /100 WBC (0.0-0.2); Platelet Count 304 K/mm3 (150-400); RDW Coefficient Variation 20.4 % (11.7-14.2); RDW Standard Deviation 53.3 fL (35.1-46.3); Red Blood Cell Count 3.21 M/mm3 (4.30-5.90)
[2018-10-14 08:08] LABS: Albumin, Blood 2.5 g/dL (3.4-5.0); Anion Gap 6 mmol/L (6-16); Blood Urea Nitrogen 31 mg/dL (8-24); Bun/Creatinine Ratio 37.1 (12.0-20.0); CO2, Blood 24 mmol/L (21-32); Calcium, Blood 7.8 mg/dL (8.5-10.1); Chloride, Blood 116 mmol/L (98-108); Creatinine, Blood 0.84 mg/dL (0.60-1.20); Glomerular Filtration Rate >60 (60-); Glucose, Blood 114 mg/dL (70-99); Phosphorus, Blood 2.6 mg/dL (2.5-4.9); Sodium, Blood 146 mmol/L (136-145)
[2018-10-14 08:25] LABS: BAND PERCENT MAN 2 % (0-8); BASOPHILS PERCENT MAN 0 % (0-2); EOSINOPHILS PERCENT MAN 0 % (0-6); LYMPHOCYTES ABSOLUTE MAN 1.05 K/mm3 (0.84-5.20); LYMPHOCYTES PERCENT MAN 6 % (21-46); METAMYELOCYTE ABSOLUTE MAN 0.52 K/mm3 (0.00-0.00); METAMYELOCYTE PERCENT MAN 3 % (0-0); MONOCYTES ABSOLUTE MAN 0.35 K/mm3 (0.16-1.47); MONOCYTES PERCENT MAN 2 % (4-13); MYELOCYTE ABSOLUTE MAN 0.17 K/mm3 (0.00-0.00); MYELOCYTE PERCENT MAN 1 % (0-0); NEUTROPHILS ABSOLUTE MAN 15.48 K/mm3 (1.96-9.15); SEG NEUTROPHILS PERCENT MAN 86 % (41-73); TOTAL CELLS COUNTED 100
--- NOTE | 2018-10-14 16:12 | NUR ---
TRANSFER OF CARE: CARE TRANSFERRED TO OSCAR KIRKLAND. PT A&O; CALM AND COOPERATIVE WITH CARE. NO C/O PAIN. PRBCs X1 UNIT INFUSING; PT TOLERATING WELL. REPORT GIVEN TO ONCOMING RN.
--- NOTE | 2018-10-14 18:02 | NUR ---
NURSING PCU DAYSHIFT SUMMARY: Assumed care of pt at approx 1600. PRBC's completed as ordered, pt tolerated well. Pt hypertensive post infusion, PMD notified, new d/o received. 5mg IV metoprolol administered as ordered, IVF discontinued. Family currently at bedside, pt OOB in chair having supper. Call light in reach, cont to monitor until rpt is given to NOC RN.
--- NOTE | 2018-10-14 20:10 | NUR ---
ASSUMED CARE PT RESTING IN ROOM COMFORTABLY. PER DAY SHIFT PT HGB LEVEL DROPPED AND WAS GIVEN 1 UNIT PRBC'S TODAY. PT ALSO HD EPISODES OF HTN TODAY AFTER UNIT OF PRBCS. MEDICATIONS WERE ADJUSTED TO HELP COVER FURTHER EPISODES OF HTN. RESP EVEN UNLBAORED ON RA W/ SATS >92%. DENIES CP OR SOB. PT REPORTS FEELING BETTER TODAY. CALL LIGHT IS IN REACH.
--- NOTE | 2018-10-14 23:05 | NUR ---
HIGH BP BLOOD PESSURE TAKEN FOR MIDSHIFT VITALS. PT REFUSED PRN BP MEDS AT THIS TIME, REPORTS "ONCE I RELAX AND SLEEP I'LL BE FINE".
[2018-10-15 03:47] LABS: BASOPHILS ABSOLUTE AUTO 0.07 K/mm3 (0.00-0.23); BASOPHILS PERCENT AUTO 0 % (0-2); Hematocrit 28.6 % (37.0-53.0); Hemoglobin 8.6 g/dL (13.5-17.5); LYMPHOCYTES ABSOLUTE AUTO 0.61 K/mm3 (0.84-5.20); LYMPHOCYTES PERCENT AUTO 4 % (21-46); MONOCYTES ABSOLUTE AUTO 0.76 K/mm3 (0.16-1.47); MONOCYTES PERCENT AUTO 5 % (4-13); Mean Corpuscular HGB 22.8 pg (26.0-34.0); Mean Corpuscular HGB Conc 30.1 g/dL (31.5-36.5); Mean Corpuscular Volume 76 fL (80-100); Mean Platelet Volume 9.8 fL (9.1-12.4); NRBC ABSOLUTE 0.19 K/mm3 (0.00-0.02); NRBC Auto 1.1 /100 WBC (0.0-0.2); Platelet Count 282 K/mm3 (150-400); RDW Coefficient Variation 20.2 % (11.7-14.2); RDW Standard Deviation 53.3 fL (35.1-46.3); Red Blood Cell Count 3.77 M/mm3 (4.30-5.90); White Blood Cell Count 16.74 K/mm3 (4.00-11.30)
[2018-10-15 03:51] LABS: EOSINOPHILS PERCENT AUTO 0 % (0-6); IMMATURE GRAN ABSOLUTE AUTO 2.17 K/mm3 (0.00-0.10); IMMATURE GRAN PERCENT AUTO 13 % (0-1); NEUTROPHILS ABSOLUTE AUTO 13.13 K/mm3 (1.96-9.15); NEUTROPHILS PERCENT AUTO 79 % (41-73)
[2018-10-15 04:01] LABS: Albumin, Blood 2.7 g/dL (3.4-5.0); Anion Gap 8 mmol/L (6-16); Blood Urea Nitrogen 27 mg/dL (8-24); Bun/Creatinine Ratio 36.5 (12.0-20.0); CO2, Blood 24 mmol/L (21-32); Calcium, Blood 8.1 mg/dL (8.5-10.1); Chloride, Blood 112 mmol/L (98-108); Creatinine, Blood 0.74 mg/dL (0.60-1.20); Glomerular Filtration Rate >60 (60-); Glucose, Blood 133 mg/dL (70-99); Phosphorus, Blood 3.2 mg/dL (2.5-4.9); Potassium, Blood 3.9 mmol/L (3.5-5.5); Sodium, Blood 144 mmol/L (136-145)
[2018-10-15 04:11] LABS: BAND PERCENT MAN 4 % (0-8); BASOPHILS PERCENT MAN 0 % (0-2); EOSINOPHILS PERCENT MAN 0 % (0-6); LYMPHOCYTES PERCENT MAN 3 % (21-46); MONOCYTES ABSOLUTE MAN 0.33 K/mm3 (0.16-1.47); MONOCYTES PERCENT MAN 2 % (4-13); MYELOCYTE PERCENT MAN 3 % (0-0); NEUTROPHILS ABSOLUTE MAN 15.06 K/mm3 (1.96-9.15); PROMYELOCYTE ABSOLUTE MAN 0.33 K/mm3 (0.00-0.00); PROMYELOCYTE PERCENT MAN 2 % (0-0); SEG NEUTROPHILS PERCENT MAN 86 % (41-73); TOTAL CELLS COUNTED 100
--- NOTE | 2018-10-15 06:13 | NUR ---
SHIFT SUMMARY PT SLEEPING IN ROOM COMFROTABLY. NO ACTUE CHANGES IN STATUS T/O NIGHT. HGB LEVEL REDRAWN LEVEL 8.6. RESP EVEN UNLABORED ON RA W/ SATS >92%. DENIES CP, AND SOB. REPORTS MILD BACK PAIN BUT DENIES NEED FOR MEDICATIONS. PT REPOSITIONS SELF FOR COMFORT. DENIES OTHER NEEDS THIS AM. CALL LIGHT IN REACH.
--- NOTE | 2018-10-15 07:50 | NUR ---
RECEIVED REPORT AND ASSUMED CARE OF PATIENT. HE IS AWAKE AND ABLE TO EXPRESS HIS NEEDS APPROPRIATELY. PT SITTING UP IN BED, ASSISTED TO CHAIR BY QUALITY CONTROL TESTER. PT AFFECT IS PLEASANT AND HE IS LOOKING FORWARD TO SEEING HIS DOGS TODAY FOR EASTER. WILL CONTINUE TO MONITOR CLOSELY, CALL LIGHT AND NC WITHIN EASY REACH, PT CONTINUE ON ROOM AIR WITH SAT >88%.
--- NOTE | 2018-10-15 12:19 | NUR ---
PT HAVING A GOOD DAY, AFFECT IS PLEASANT. AT BEDSIDE, SHE BROUGHT PT'S DOG TO VISIT AND PT IS ENJOYING THE AFTERNOON. UP TO CHAIR FOR LUNCH.
--- NOTE | 2018-10-15 18:35 | NUR ---
PT HAD A GOOD DAY TODAY, HE WAS SITTING UP IN CHAIR AND BED THROUGHOUT THE SHIFT, AT BEDSIDE WITH DOGS VISITING IN THE AFTERNOON. AFFECT IS PLEASANT AND PT IS ENCOURAGED BY CONTINUED WORK WITH PT TOMORROW TO GET HIM UP AND MOVING AROUND BETTER. PT HAS CONTINUED ON RA WITH O2 SAT AT 92%>. WILL CONTINUE TO MONITOR AND GIVE REPORT TO NOC RN.
--- NOTE | 2018-10-16 06:23 | NUR ---
SHIFT SUMMARY. SLEPT WELL ALL NOC. VOIDS IN URINAL W/O GETTING OUT OF BED . HS SNACK ASPIRATION PRECAUTIONS. TOLERATED WELL. NO O2 USED TONIGHT. SATS WNL. BUT NOT ACTIVE. AWARE HE WILL BE EVALUATED TODAY WHILE OOB AND NEED FOR O2 W/ ACTIVITY ONLY . NO LAB TODAY ORDERED.FREQ RR 24 AND MINIMAL MOVING ABOUT IN BED. TURNS SELF IN BED. ALL NOC. SR. SCATTERED WZ AND DIMINISHED AIR EXCHANGE.
[2018-10-16 07:26] LABS: Hematocrit 30.4 % (37.0-53.0); Hemoglobin 9.1 g/dL (13.5-17.5); Mean Corpuscular HGB 23.3 pg (26.0-34.0); Mean Corpuscular HGB Conc 29.9 g/dL (31.5-36.5); Mean Corpuscular Volume 78 fL (80-100); Mean Platelet Volume 9.5 fL (9.1-12.4); NRBC ABSOLUTE 0.14 K/mm3 (0.00-0.02); NRBC Auto 0.9 /100 WBC (0.0-0.2); Platelet Count 273 K/mm3 (150-400); RDW Standard Deviation 55.8 fL (35.1-46.3); White Blood Cell Count 16.01 K/mm3 (4.00-11.30)
[2018-10-16 08:01] LABS: Anion Gap 5 mmol/L (6-16); Blood Urea Nitrogen 29 mg/dL (8-24); Bun/Creatinine Ratio 43.3 (12.0-20.0); CO2, Blood 26 mmol/L (21-32); Calcium, Blood 7.9 mg/dL (8.5-10.1); Chloride, Blood 109 mmol/L (98-108); Creatinine, Blood 0.67 mg/dL (0.60-1.20); Glomerular Filtration Rate >60 (60-); Glucose, Blood 118 mg/dL (70-99); Potassium, Blood 3.8 mmol/L (3.5-5.5); Sodium, Blood 140 mmol/L (136-145)
[2018-10-16 08:09] LABS: BAND PERCENT MAN 2 % (0-8); BASOPHILS PERCENT MAN 0 % (0-2); EOSINOPHILS PERCENT MAN 0 % (0-6); LYMPHOCYTES ABSOLUTE MAN 0.32 K/mm3 (0.84-5.20); LYMPHOCYTES PERCENT MAN 2 % (21-46); METAMYELOCYTE ABSOLUTE MAN 0.32 K/mm3 (0.00-0.00); METAMYELOCYTE PERCENT MAN 2 % (0-0); MONOCYTES ABSOLUTE MAN 0.48 K/mm3 (0.16-1.47); MONOCYTES PERCENT MAN 3 % (4-13); MYELOCYTE ABSOLUTE MAN 0.16 K/mm3 (0.00-0.00); MYELOCYTE PERCENT MAN 1 % (0-0); NEUTROPHILS ABSOLUTE MAN 14.72 K/mm3 (1.96-9.15); SEG NEUTROPHILS PERCENT MAN 90 % (41-73); TOTAL CELLS COUNTED 100
--- NOTE | 2018-10-16 10:06 | NUR ---
RECEIVED REPORT AND ASSUMED CARE OF PATIENT. HE HAS PLEASANT AFFECT THIS AM AND IS ANXIOUS TO WORK WITH PT/OT TO ESTABLISH BASELINE SO HE CAN GO HOME. PT CONTINUES W/O O2 AND O2 SAT HAVE IMPROVED TO 93-95% AT REST. WILL CONTINUE TO MONITOR.
[2018-10-16] MEDS ORDERED: COMBIVENT RESPIM4 GM NEB (16:01)
[2018-10-16] MEDS ORDERED: LEVFLO500 PO (16:03)
--- NOTE | 2018-10-16 17:09 | NUR ---
PT DISCHARGED WITH BY AUTOMOBILE. GIVEN DISCHARGE INSTUCTIONS AND FOLLOW UP APPOINTMENTS.
== END 2018-10-16 16:35 | disposition home health service (06) | DRG 871 ==
LOC: ER 12:26 → ERHOLD 14:50 → ICUW 14:50 → MEDS 14:50 → ICUW 16:16 → MEDS 16:22 → ICUW 10-10 10:00 → PCU 10-11 16:15
PROVIDERS: Internal Medicine; Physician Assistant; ADMIT Family Medicine
PROC: 30233N1 Transfusion of Nonautologous Red Blood Cells into Peripheral Vein, Percutaneous Approach (ICD-10-PCS; principal; 2018-10-10)
PROC: 5A09357 Assistance with Respiratory Ventilation, Less than 24 Consecutive Hours, Continuous Positive Airway Pressure (ICD-10-PCS; 2018-10-12)
DX: A41.9 Sepsis, unspecified organism (principal); J96.90 Respiratory failure, unspecified, unspecified whether with hypoxia or hypercapnia; J69.0 Pneumonitis due to inhalation of food and vomit; E87.1 Hypo-osmolality and hyponatremia; J44.1 Chronic obstructive pulmonary disease with (acute) exacerbation; Z51.5 Encounter for palliative care; Z87.891 Personal history of nicotine dependence; E86.0 Dehydration; B02.9 Zoster without complications; Z99.81 Dependence on supplemental oxygen; I25.10 Atherosclerotic heart disease of native coronary artery without angina pectoris; Z86.73 Personal history of transient ischemic attack (TIA), and cerebral infarction without residual deficits; Z79.02 Long term (current) use of antithrombotics/antiplatelets; R13.10 Dysphagia, unspecified; I25.2 Old myocardial infarction; I10 Essential (primary) hypertension; I35.0 Nonrheumatic aortic (valve) stenosis; Z95.2 Presence of prosthetic heart valve; F41.1 Generalized anxiety disorder; E87.6 Hypokalemia; D50.0 Iron deficiency anemia secondary to blood loss (chronic)
CPT/HCPCS: 36415; 36430; 71045; 71046; 80048; 80053; 80069; 81003; 83605; 83880; 84484; 85014; 85018; 85025; 86850; 86900; 86901; 86923; 87040; 87070; 87205; 92526; 92610; 93005; 93010; 94640; 94660; 94667; 94760; 94761; 94762; 96361; 96365; 96366; 96375; 97161; 97165; 97530; 99285-25; J0133; J0360; J0696; J1956; J2405; J2916; J2920; J2930; J7030; J7050; J7060; J7120; J7512; P9016

== ENCOUNTER 2019-05-23 07:22 | Day surgery (SDC) | payer OTHER, SELFPAY ==
[~2019-05-23] VITALS: Ht 170.2 cm; Wt 58.4 kg
[~2019-05-23 07:22] MED LIST changes: +COMBIVENT RESPIM4 GM NEB; +LEVFLO500 PO; +MUCUS RELIEF C200 MG PO; +PRED5 PO; +SPIRIVA RESPIMAT4 GM INH
== END 2019-05-23 09:56 | disposition home or self-care (01) ==
LOC: ORSCSDS 07:22
PROVIDERS: Ophthalmology
PROC: 08RJ3JZ Replacement of Right Lens with Synthetic Substitute, Percutaneous Approach (ICD-10-PCS; principal; 2019-05-23 09:00)
DX: H25.11 Age-related nuclear cataract, right eye (principal); I10 Essential (primary) hypertension; J44.9 Chronic obstructive pulmonary disease, unspecified; Z87.891 Personal history of nicotine dependence; I25.2 Old myocardial infarction; Z79.899 Other long term (current) drug therapy; Z79.01 Long term (current) use of anticoagulants
CPT/HCPCS: J2001; J2250; J3010; J3301; J7120; V2632

== ENCOUNTER 2019-06-13 06:51 | Day surgery (SDC) | payer OTHER ==
[~2019-06-13] VITALS: Ht 170.2 cm; Wt 58.0 kg
--- NOTE | 2019-06-13 07:26 | NUR ---
06/13/19 0726 Daniel Hayes CALL LIGHT WITHIN REACH.
== END 2019-06-13 09:31 | disposition home or self-care (01) ==
LOC: ORSCSDS 06:51
PROVIDERS: Ophthalmology
PROC: 08RK3JZ Replacement of Left Lens with Synthetic Substitute, Percutaneous Approach (ICD-10-PCS; principal; 2019-06-13 08:30)
DX: H25.12 Age-related nuclear cataract, left eye (principal); J44.9 Chronic obstructive pulmonary disease, unspecified; G25.0 Essential tremor; I10 Essential (primary) hypertension; Z86.73 Personal history of transient ischemic attack (TIA), and cerebral infarction without residual deficits; I25.2 Old myocardial infarction; Z79.01 Long term (current) use of anticoagulants; Z79.82 Long term (current) use of aspirin; Z79.899 Other long term (current) drug therapy
CPT/HCPCS: 93005; 93010; J2001; J2250; J3010; J3301; J7040; J7120; V2632

== ENCOUNTER 2021-09-10 15:12 | Emergency (ER) | payer OTHER ==
[~2021-09-10] VITALS: Ht 170.2 cm; Wt 53.1 kg
[2021-09-10] MEDS ORDERED: CEPH500 PO (18:35)
[2021-09-10] MEDS ORDERED: Norco 5-325 Ta1 EACH PO (18:35)
== END 2021-09-10 18:44 | disposition home or self-care (01) ==
LOC: ER 15:12
DX: S68.621A Partial traumatic transphalangeal amputation of left index finger, initial encounter (principal); J44.9 Chronic obstructive pulmonary disease, unspecified; Z88.0 Allergy status to penicillin; Z79.899 Other long term (current) drug therapy; X58.XXXA Exposure to other specified factors, initial encounter
CPT/HCPCS: 73140; 90714; 99283-25; A9270; J0690

== ENCOUNTER 2022-06-11 19:35 | Inpatient (IN) | payer OTHER ==
[~2022-06-11] VITALS: Ht 172.7 cm; Wt 50.1 kg
[~2022-06-11 19:35] MED LIST changes: +CEPH500 PO
[2022-06-11 20:16] LABS: BASOPHILS ABSOLUTE AUTO 0.03 K/mm3 (0.00-0.23); BASOPHILS PERCENT AUTO 0 % (0-2); EOSINOPHILS ABSOLUTE AUTO 0.02 K/mm3 (0.00-0.68); EOSINOPHILS PERCENT AUTO 0 % (0-6); Hematocrit 22.8 % (37.0-53.0); Hemoglobin 6.3 g/dL (13.5-17.5); IMMATURE GRAN PERCENT AUTO 1 % (0-1); LYMPHOCYTES ABSOLUTE AUTO 1.07 K/mm3 (0.84-5.20); LYMPHOCYTES PERCENT AUTO 4 % (21-46); MONOCYTES ABSOLUTE AUTO 2.04 K/mm3 (0.16-1.47); MONOCYTES PERCENT AUTO 7 % (4-13); Mean Corpuscular HGB 17.1 pg (26.0-34.0); Mean Corpuscular HGB Conc 27.6 g/dL (31.5-36.5); Mean Corpuscular Volume 62 fL (80-100); Mean Platelet Volume 10.4 fL (9.1-12.4); NEUTROPHILS ABSOLUTE AUTO 25.99 K/mm3 (1.96-9.15); NEUTROPHILS PERCENT AUTO 88 % (41-73); NRBC ABSOLUTE 0.02 K/mm3 (0.00-0.02); NRBC Auto 0.1 /100 WBC (0.0-0.2); Platelet Count 471 K/mm3 (150-400); RDW Coefficient Variation 19.6 % (11.7-14.2); RDW Standard Deviation 41.5 fL (35.1-46.3); Red Blood Cell Count 3.69 M/mm3 (4.30-5.90); White Blood Cell Count 29.55 K/mm3 (4.00-11.30)
[2022-06-11 21:15] LABS: Albumin, Blood 2.8 g/dL (3.4-5.0); Albumin/Globulin Ratio 0.7 (0.8-1.8); Bilirubin, Total 0.3 mg/dL (0.1-1.0); Bun/Creatinine Ratio 29.4 (12.0-20.0); Calcium, Blood 8.5 mg/dL (8.5-10.1); Creatinine, Blood 0.82 mg/dL (0.60-1.20); Potassium, Blood 3.7 mmol/L (3.5-5.5); Total Protein, Blood 6.8 g/dL (6.4-8.2)
[2022-06-11 22:31] LABS: Influenza A, PCR NEGATIVE (NEGATIVE); Influenza B, PCR NEGATIVE (NEGATIVE); Resp Syncytial Virus, PCR NEGATIVE (NEGATIVE); SARS-Cov-2 (COVID-19) PCR, MMC NEGATIVE (NEGATIVE)
[2022-06-12 03:21] LABS: BASOPHILS ABSOLUTE AUTO 0.02 K/mm3 (0.00-0.23); BASOPHILS PERCENT AUTO 0 % (0-2); EOSINOPHILS PERCENT AUTO 0 % (0-6); Hematocrit 21.3 % (37.0-53.0); IMMATURE GRAN ABSOLUTE AUTO 0.25 K/mm3 (0.00-0.10); IMMATURE GRAN PERCENT AUTO 1 % (0-1); LYMPHOCYTES ABSOLUTE AUTO 0.11 K/mm3 (0.84-5.20); LYMPHOCYTES PERCENT AUTO 1 % (21-46); MONOCYTES ABSOLUTE AUTO 0.98 K/mm3 (0.16-1.47); MONOCYTES PERCENT AUTO 4 % (4-13); Mean Corpuscular HGB 17.2 pg (26.0-34.0); Mean Corpuscular HGB Conc 27.7 g/dL (31.5-36.5); Mean Corpuscular Volume 62 fL (80-100); Mean Platelet Volume 10.3 fL (9.1-12.4); NEUTROPHILS ABSOLUTE AUTO 21.44 K/mm3 (1.96-9.15); NEUTROPHILS PERCENT AUTO 94 % (41-73); Platelet Count 403 K/mm3 (150-400); RDW Coefficient Variation 19.3 % (11.7-14.2); RDW Standard Deviation 41.8 fL (35.1-46.3); Red Blood Cell Count 3.43 M/mm3 (4.30-5.90)
[2022-06-12 03:40] LABS: Albumin, Blood 2.7 g/dL (3.4-5.0); Albumin/Globulin Ratio 0.7 (0.8-1.8); Bilirubin, Total 0.2 mg/dL (0.1-1.0); Bun/Creatinine Ratio 27.4 (12.0-20.0); Calcium, Blood 8.3 mg/dL (8.5-10.1); Creatinine, Blood 0.8 mg/dL (0.60-1.20); Globulin, Blood 3.8 g/dL (2.2-4.0); Potassium, Blood 3.6 mmol/L (3.5-5.5); Total Protein, Blood 6.5 g/dL (6.4-8.2)
[2022-06-12 04:25] LABS: Hemoglobin 5.9 g/dL (13.5-17.5)
[2022-06-12 04:36] LABS: Source, Urine Foley catheter
[2022-06-12 04:41] LABS: Bilirubin, Urine Neg (Neg); Blood, Urine 2+ (Neg); Glucose Qualitative, Urine 3+ (Neg); Ketones, Urine Neg (Neg); Leukocyte Esterase, Urine Neg (Neg); Nitrite, Urine Neg (Neg); Protein, Urine 2+ (Neg); Specific Gravity, Urine 1.025 (1.003-1.022); Urobilinogen, Urine NORM (Normal)
[2022-06-12 04:55] LABS: Base Excess Venous -3.3 mmol/L; Bicarbonate Venous 21.6 mmol/L (24.0-30.0); PCO2 Venous 39.8 mmHg (38-42); pH Blood Venous 7.36 (7.34-7.37)
[2022-06-12 05:20] LABS: Appearance, Urine Hazy (Clear); Color, Urine Pale Yellow (P-Yellow)
[2022-06-12 05:22] LABS: Bacteria Few /hpf; Granular Casts 0-2 /lpf (0); Red Blood Cells, Urine 0-2 /hpf (0-2); Squamous Epithelial Cells Rare /hpf (Few); White Blood Cells, Urine 0-2 /hpf (0-5)
--- NOTE | 2022-06-12 06:05 | NUR ---
UPDATED PT GUILLAUME RE: ADMISSION TO ICU AND ATTEMPTED TO CLARIFY MEDICATIONS. GUILLAUME WILL BE HERE TODAY SOMETIME AROUND NOON AND SAID SHE WOULD BRING THE ENTIRE LIST OF HOME MEDICATIONS WITH HER. VERY GRATEFUL FOR THE CALL. SPOKE ABOUT HER 3 DOGS AND HOW IT MEANT A LOT TO GENESIS TO SEE THE DOGS LAST TIME HE WAS HOSPITALIZED. ADVISED DOGS WOULDN'T BE ALLOWED INTO THE ICU, BUT ONCE HE'S OUT OF HERE, MAY WANT TO CHECK ON PROCESS FOR VISITING.
--- NOTE | 2022-06-12 06:35 | NUR ---
SHIFT SUMMARY: Patient arrived to ICU at approx 0205 this morning. He is currently receiving his second unit of PRBCs. 14Fr Chow placed. PIV in L arm infiltrated or was leaky; powerglide now in place. Patient's updated on status. Please see previous note by this author. NEURO: pt very pleasant, OHKAY OWINGEH. TMax in ICU 99.4F. He is a poor historian, says Fawn knows more about him than he does. Denies CP. He seems anxious at times, especially when associated with any increased work of breathing. He is oriented. CARDS: he's been irregularly irregular with a longer QTc. P-waves seem present, however. Rates 100-130. Hx of OK and bovine valve replacement. Plavix on hold. Ecchymotic near infiltrated site L arm. BP WDL. RESP: initially author had RT come assess patient as he sounded coarse in upper airway. Patient reports increasing difficulty with swallowing over the past weeks/months and may benefit from swallow study. He does seem to have difficulty clearing his secretions. He is satting >90% on 2-3L NC. L lower lobe infiltrate. MSK: on bedrest but generally weak. INTEG: bruising LUE from bad IV. Poor turgor. GI/: Chow placed; patient and connected to gravity drain. No BM this shift.
--- NOTE | 2022-06-12 08:54 | NUR ---
ASSUMED PT CARE AT 0700 PT SLEEPING UPON ASSUMPTION; HOWEVER, EASILY AROUSABLE. ALERT AND ORIENTED AND ABLE TO MAKE NEEDS KNOWN. PLEASANT AND COOPERATIVE WITH CARES. BLOOD TRANSFUSING AT 125ML/HR. PT NOTED TO HAVE AUDIBLE WHEEZING. TEMP 99.3. DENIES CHILLS/FLANK PAIN. PT NOTED TO BE SATURATED D/T CATHETER LEAKING. CHANGED CATHETER FROM A 14F TO 16F; CHANGED LINEN AND GAVE A BED BATH. PT BECAME VERY SOB WITH ACTIVITY WITH RESP RATE INCREASING TO THE 40'S, UTILIZING ACCESSORY MUSCLES TO BREATHE. WHEEZING CONTINUED. DROPPED BLOOD TRANSFUSION RATE DOWN TO 75MLS/HR. INSTRUCTED ON PURSED LIP BREATHING. CALLED RT TO GET PT A BREATHING TX. PT DEMANDING WATER; EDUCATED THAT HE COULD HAVE A SWAB, BUT NO WATER D/T SOB WITH ELEVATED RESP RATE. PT BECAME VERY AGITATED, BUT WAS REDIRECTABLE. PT NOTED TO BE SINUS TACH WITH PAC'S. HAD A NON-SUSTAINED RUN OF SVT DURING SOB EPISODE. HR 120-140'S. PT IS ON BASELINE 3L OF OXYGEN WITH SPO2 >90%. ELEVATED BP UPON ASSUMPTION OF CARE WITH SBP 180; HOWEVER, CURRENTLY SBP IS 155. CALL LIGHT WITHIN REACH; WILL CONTINUE TO MONITOR.
[2022-06-12 09:35] LABS: Source, Urine Foley catheter
[2022-06-12 09:38] LABS: Appearance, Urine Clear (Clear); Bilirubin, Urine Neg (Neg); Blood, Urine 4+ (Neg); Color, Urine Yellow (P-Yellow); Glucose Qualitative, Urine Neg (Neg); Ketones, Urine Neg (Neg); Leukocyte Esterase, Urine Neg (Neg); Nitrite, Urine Neg (Neg); Protein, Urine 3+ (Neg); Specific Gravity, Urine 1.025 (1.003-1.022); Urobilinogen, Urine NORM (Normal)
[2022-06-12 09:57] LABS: Bacteria Few /hpf; Red Blood Cells, Urine 25-50 /hpf (0-2); Squamous Epithelial Cells Rare /hpf (Few)
[2022-06-12 09:58] LABS: Renal Epithelial Rare /hpf (0-Rare)
[2022-06-12 10:17] LABS: Hematocrit 30.4 % (37.0-53.0); Hemoglobin 9.5 g/dL (13.5-17.5)
[2022-06-12] MEDS ORDERED: AMLODIPINE BESYL5 MG PO (10:39)
--- NOTE | 2022-06-12 10:50 | NUR ---
[facility] CALLED TO RECONCILE MEDS BROUGHT SOME IN AND NOT OTHERS. PT HAS NOT FILLED METOPROLOL SINCE JULY. WILL CALL ABOUT D/C'ING THIS ORDER. PT DID HAVE AMLODIPINE 5MG LISTED THAT HE TAKES DAILY. WILL NOTIFY PROVIDER.
--- NOTE | 2022-06-12 10:52 | NUR ---
SPEECH EVAL PT FAILED HE WAS COUGHING AND GURGLING AFTER SPOONFULS OF THICKENED AND PUREE. WILL KEEP NPO AT THIS TIME AND PERFORM ORAL CARE EVERY 4 HOURS
--- NOTE | 2022-06-12 11:01 | NUR ---
HOME CONCERNS PT VERBALIZING HE DOESN'T WANT TO LIVE LIKE THIS ANY LONGER. CONCERNED ABOUT GOING HOME HIS CAN'T TAKE CARE OF HIM. STATES ALL THEY DO IS SIT IN A RECLINER ALL DAY. ASKED IF HE HAS ANYONE TO HELP ASSIST AT HOME OR HELP WITH GROCERY SHOPPING/COOKING. PT SHOOK HIS HEAD NO. PT STATES HE KNOWS HIS LOVES HIM VERY MUCH, BUT HE DOESN'T WANT TO BE A BURDEN FOR HER TO TAKE CARE OF. PLACED SOCIAL SERVICE CONSULT.
--- NOTE | 2022-06-12 12:35 | NUR ---
Called to ICU to speak with pt, family and Dr. Ferreira re: goals of care. Pt has a long history of COPD. Was admitted with pneumonia. Likely aspirating. Pt verbalizes he is very uncomfortable and is very SOB. He is on 3.5 liter/min of O2 and has a RR in the 30s. He voices that he is tired of "this" and "I can't breathe." Roxinol order obtained from MD. Pt did appear to be less SOB after roxinal, but still states that he can't breathe. Once he was medicated with a second dose of roxinal he was able to verbalize his wishes more. He requests comfort care. His agrees with his choice. Briefly explained comfort care. Will plan to to return to have further discussions about possible home with hospice once patient has more of his symptoms managed. PC to continue to follow for symptom managment and support.
--- NOTE | 2022-06-12 12:37 | NUR ---
COMFORT CARE PT TRANSITIONED TO COMFORT CARE AFTER DISCUSSION WAS HAD WITH PATIENT, , DR. ARTHUR, AND LIV (PALLIATIVE CARE NURSE). PT VERBALIZED HOW UNCOMFORTABLE HE WAS AND HOW MUCH PAIN HE WAS IN. ROXONAL 20MG GIVEN FOR AIR HUNGER AND 2MG OF ATIVAN ADMINISTERED. PT STILL BREATHING WITH A RATE IN THE HIGH 30'S, BUT APPEARS MORE RELAXED. ATROPINE DROPS ALSO ADMINISTERED. WOULD LIKE TO SEE IF PATIENT CAN GO HOME WITH HOSPICE HE DOESN'T WANT TO IN A HOSPITAL. WILL PLACE HOSPICE REFERRAL AND RELAY TO LIV WHAT THEIR OPTIONS WOULD BE.
--- NOTE | 2022-06-12 14:33 | NUR ---
REPORTED OFF TO OSCAR HOLLY
--- NOTE | 2022-06-12 16:33 | NUR ---
Spoke with Fawn, Rich's , on the phone. She is home and resting. Gave her an update on Rich. She is grateful for the information today and that Rich is comfortable. Explained to her that hospice would likely not be available until Tuesday and she verbalized understanding. She states she wouldn't be able to care for Rich at home unless she had hospice in place for assistance. Will see how Rich does over the weekend before discussing hospice as an option Tuesday. PC to continue to follow.
--- NOTE | 2022-06-12 21:07 | NUR ---
ASSUMPTION OF CARE/ASSESSMENT: ASSUMED CARE OF PT AT 1900. PT IS IN A DEEP SLEEP AND NOT AROUSING TO VERBAL STIMULI; PT RESPONDING TO STERNAL RUB WITH GRIMANCE. PT LUNG SOUNDS ARE CLEAR WITH AN INSPIRATORY WHEEZE; SPO2 98<. PT HR 77. PT MARTINEZ IN PLACE AND DRAINING TO GRAVITY. PT ON COMFORT CARE. WILL CONTINUE TO MONITOR.
--- NOTE | 2022-06-13 06:40 | NUR ---
SHIFT SUMMARY: NO ACUTE CHANGES THIS SHIFT. PT MEDICATED TWICE THIS SHIFT, SEE EMAR. NEW IV PLACED THIS SHIFT FOR MED ADMINISTRATION. PT HAS PERIODIC EPISODE OF RESPIRATORY DISTRESS, BUT RECOVERS WITH ORAL AND IV MORPHINE ADMINISTRATION. PT IN A DEEP SLEEP AND AROUSES TO PAIN STIMULI. WILL CONTINUE TO MONITOR UNTIL ONCOMING RN ARRIVES.
--- NOTE | 2022-06-13 17:32 | NUR ---
SUMMARY PT COMFORT CARE. WILL WAKE AT TIMES AND HAS WHEEZING RESPIRATIONS AND MOANS. ATIVAN, MORPHINE, AND ATROPINE GIVEN WITH GOOD RESULTS. WAS IN TODAY FOR A BIT. NO OTHER CHANGES.
--- NOTE | 2022-06-14 04:19 | NUR ---
RCVD PT TRANSFER PT TRANSFER FROM ICU; COMFORT CARE; PT MOSTLY UNRESPONSIVE T/VERBAL STIMULI; PT RESPONSE/REFLEX T/PAIN STIMULI WHEN TRANSFERED T/BED AND REPOSITIONED. LEFT FOREARM IV PATENT; MARTINEZ IN PLACE; PATENT; DRAINING T/GRAVITY. AUDIBLE GURGLE/RATTLE HEARD. SUCTION SET UP AT BEDSIDE. PT GASPING/LABORING F/AIR; MED W/ROXINAL. PLACE CALL LIGHT IN REACH; W/CONT T/MONITOR W/COMFORT CARE ASSESSMENTS AND Q2 TURN.
[2022-06-14] MEDS ORDERED: SYMBICORT 160-4.6 GM INH (15:14)
== END 2022-06-14 16:38 | disposition hospice, home (50) | DRG 871 ==
LOC: ER 19:35 → ICUW 06-12 01:09 → ICUE 06-12 01:09 → MEDS 06-14 03:48
PROVIDERS: Family Medicine; Student in an Organized Health Care Education/Training Program; ADMIT Internal Medicine
PROC: 30233N1 Transfusion of Nonautologous Red Blood Cells into Peripheral Vein, Percutaneous Approach (ICD-10-PCS; principal; 2022-06-11)
PROC: 3E03329 Introduction of Other Anti-infective into Peripheral Vein, Percutaneous Approach (ICD-10-PCS; 2022-06-12)
DX: A41.9 Sepsis, unspecified organism (principal); J18.9 Pneumonia, unspecified organism; J96.01 Acute respiratory failure with hypoxia; E87.20 Acidosis, unspecified; J44.0 Chronic obstructive pulmonary disease with (acute) lower respiratory infection; I10 Essential (primary) hypertension; D50.9 Iron deficiency anemia, unspecified; R65.20 Severe sepsis without septic shock; Z66 Do not resuscitate; Z51.5 Encounter for palliative care; E78.5 Hyperlipidemia, unspecified; J61 Pneumoconiosis due to asbestos and other mineral fibers; I35.0 Nonrheumatic aortic (valve) stenosis; I25.10 Atherosclerotic heart disease of native coronary artery without angina pectoris; K40.90 Unilateral inguinal hernia, without obstruction or gangrene, not specified as recurrent; Z20.822 Contact with and (suspected) exposure to COVID-19; Z88.0 Allergy status to penicillin; Z88.8 Allergy status to other drugs, medicaments and biological substances; Z86.73 Personal history of transient ischemic attack (TIA), and cerebral infarction without residual deficits; Z79.899 Other long term (current) drug therapy; Z79.51 Long term (current) use of inhaled steroids; Z79.52 Long term (current) use of systemic steroids; Z79.891 Long term (current) use of opiate analgesic; Z79.2 Long term (current) use of antibiotics; Z98.890 Other specified postprocedural states; Z95.2 Presence of prosthetic heart valve
CPT/HCPCS: 0241U; 36415; 36430; 51703; 71046; 80053; 81001; 82803; 83605; 83880; 84484; 85014; 85018; 85025; 86850; 86900; 86901; 86923; 92610; 93005; 93010; 93306; 94640; 94644; 94664; 96374; 96375; 99285-25; A9270; C1751; C9113; J0360; J0456; J0696; J2060; J2270; J2930; J7030; J7050; P9016